=== PATIENT | female | born 2000 | race Caucasian/White ===

== ENCOUNTER 2022-01-18 18:06 | Emergency (ER) | payer OTHER ==
[~2022-01-18] VITALS: Ht 162.6 cm; Wt 56.8 kg
[2022-01-18 18:17] VITALS: TEMP 98.3
[2022-01-18 19:45] VITALS: BP 124/78; PULSE 76
== END 2022-01-18 19:45 | disposition home or self-care (01) ==
LOC: COL.ER 18:06
DX: S90.212A Contusion of left great toe with damage to nail, initial encounter (principal); W22.01XA Walked into wall, initial encounter